=== PATIENT | female | born 1980 | race African-American/Black ===

== ENCOUNTER 2018-12-31 11:06 | Observation (INO) ==
[2018-12-31] MEDS ORDERED: Acetaminophen 325 MG Tablet PO PRN (14:50)
[2018-12-31] MEDS ORDERED: Bisacodyl 10 MG Supp RECTAL PRN (14:50)
--- NOTE | 2018-12-31 16:15 | P.HPIM ---
History of Present Illness Primary Care Physician: No Primary Care Physician Chief Complaint: Chest pain and left flank pain History of Present Illness: This is a 38-year-old female patient with no known medical history presented to the ED with complaints of left flank pain as well as midsternal chest pain for 2 weeks. Patient states that 2 weeks ago she had an episode of chest discomfort that was characteristically sharp in nature in the middle of her chest, she states that it lasted a couple minutes and then went away on its own. This past week she is intermittently been having chest pains that have been sharp in nature and worse when she breathes in and out, denies any radiation of the pain up her neck, arm or back. Does admit to associated nausea, shortness of breath and sweating with the pain. Denies any associated vomiting. Aside from this, patient does complain of left flank pain , denies any trauma to the area is tender to palpation. She has been taking Tylenol with some relief of the pain. Patient denies any history of heart disease, her risk factors do include family history of cardiovascular disease as well as self being obese. Does not follow with a elevator installer or PCP, has never had her cholesterol checked. Denies any recent fevers, chills, abdominal pain, diarrhea or dysuria. She does admit that she has had head congestion as well as sore throat for the past week. Denies any recent antibiotic use. Review of Systems Review of Systems: all other systems reviewed are negative PMFSH History History Provided By: Patient Medical History Medical History GERD (gastroesophageal reflux disease) (Acute) Surgical History Surgical History Hx of section (Acute) Family History Family History Other Cardiovascular disease Social History Social History Substance History: No History of Abuse Second Hand Smoke Exposure: No Smoking Status: Light tobacco smoker Tobacco Type: Cigarettes How Often Do You Have a Drink Containing Alcohol: 2 to 4 times a month [facility] within the Last 8 Weeks: No Recent Out of Country Travel within the Last 8 Weeks: No Medications and Allergies Allergies Allergy/AdvReac Type Severity Reaction Status Date / Time No Known Allergies Allergy Verified 12/31/18 11:42 Home Medications Medication Instructions Recorded Confirmed Type calcium carbonate-mag hydroxid 1 tab PO DAILY 12/31/18 12/31/18 History [Antacid (calcium carb-mag hyd)] Active Medications: Active Medications Acetaminophen (Tylenol) 650 mg PO Q4H PRN PRN Reason: Temp > 100.4 Al Hydroxide/Mg Hydroxide (Milk Of Magnesia Liq) 30 ml PO Q12H PRN PRN Reason: Mild Constipation Bisacodyl (Dulcolax Supp) 10 mg RECTAL DAILY PRN PRN Reason: SEVERE CONSITIPATION Lactulose (Lactulose Liq) 30 ml PO DAILY PRN PRN Reason: SEVERE CONSITIPATION Ondansetron HCl (Zofran Inj) 4 mg IV.PUSH Q6H PRN PRN Reason: NAUSEA OR VOMITING Sennosides (Senokot) 17.2 mg PO Q12H PRN PRN Reason: Moderate Constipation Sodium Chloride (Ns Flush) 2 ml IV.FLUSH BID TORRES Sodium Chloride (Ns Flush) 2 ml IV.FLUSH PRN PRN PRN Reason: FLUSH AFTER USING IV ACCESS Physical Exam Narrative: GENERAL: Well-developed, obese female patient with complaints of headache SKIN: Warm and dry. No rash. HEAD: Normocephalic. Atraumatic. EYES: Pupils equal and round. No scleral icterus. No injection or drainage. ENT: No nasal bleeding or discharge. Mucous membranes pink and moist. NECK: Supple. Trachea midline. CARDIOVASCULAR: Regular rate and rhythm. S1, S2 noted. No murmur appreciated. No chest pain to palpation RESPIRATORY: No accessory muscle use. Clear to auscultation. Breath sounds equal bilaterally. GASTROINTESTINAL: Abdomen soft, non-tender, nondistended. Normoactive bowel sounds x4. MUSCULOSKELETAL: No obvious deformities. Extremities without clubbing, cyanosis , or edema. NEUROLOGICAL: Awake and alert. No obvious cranial nerve deficits. Motor grossly within normal limits. 5/5 muscle strength in bilateral upper and lower extremities. Normal speech. PSYCHIATRIC: Appropriate mood and affect; insight and judgment normal. Caprini VTE Risk Assessment Caprini VTE Risk Assessment: No/Low Risk (score <= 1) Caprini Risk Assessment Model: Point Value = 1 Point Value = 2 Point Value = 3 Point Value = 5 Age 41-60 Minor surgery BMI > 25 kg/m2 Swollen legs Varicose veins or History of unexplained or recurrent spontaneous Oral contraceptives or hormone replacement Sepsis (< 1 month) Serious lung disease, including pneumonia (< 1 month) Abnormal pulmonary function Acute myocardial infarction Congestive heart failure (< 1 month) History of inflammatory bowel disease Medical patient at bed rest Age 61-74 Arthroscopic surgery Major open surgery (> 45 min) Laparoscopic surgery (> 45 min) Malignancy Confined to bed (> 72 hours) Immobilizing plaster cast Central venous access Age >= 75 History of VTE Family history of VTE Factor V Leiden Prothrombin [id number] Lupus anticoagulant Anticardiolipin antibodies Elevated serum homocysteine Heparin-induced thrombocytopenia Other congenital or acquired thrombophilia Stroke (< 1 month) Elective arthroplasty Hip, pelvis, or leg fracture Acute spinal cord injury (< 1 month) Prophylaxis Regimen: Total Risk Factor Score Risk Level Prophylaxis Regimen 0-1 Low Early ambulation 2 Moderate Order ONE of the following: *Sequential Compression Device (SCD) *Heparin 5000 units SQ BID 3-4 Higher Order ONE of the following medications: *Heparin 5000 units SQ TID *Enoxaparin/Lovenox 40 mg SQ daily (WT < 150 kg, CrCl > 30 mL/min) *Enoxaparin/Lovenox 30 mg SQ daily (WT < 150 kg, CrCl > 10-29 mL/min) *Enoxaparin/Lovenox 30 mg SQ BID (WT < 150 kg, CrCl > 30 mL/min) AND/OR *Sequential Compression Device (SCD) 5 or more Highest Order ONE of the following medications: *Heparin 5000 units SQ TID (Preferred with Epidurals) *Enoxaparin/Lovenox 40 mg SQ daily (WT < 150 kg, CrCl > 30 mL/min) *Enoxaparin/Lovenox 30 mg SQ daily (WT < 150 kg, CrCl > 10-29 mL/min) *Enoxaparin/Lovenox 30 mg SQ BID (WT < 150 kg, CrCl > 30 mL/min) AND *Sequential Compression Device (SCD) Assessment and Plan Plan This is a 38-year-old male patient with no known medical history presented to the ED with complaints of chest pain as well as left flank pain. Chest pain, atypical -Patient has been admitted to the chest pain center for observation. Serial EKGs and serial troponins have been ordered for ruling out ACS purposes. Initial troponin flat. We will continue to monitor trends. -EKG reviewed showing normal sinus rhythm without any ST changes to indicate any ischemia. -Continue on cardiac telemetry, monitor for any arrhythmias. -BNP 5. CBC and BMP reviewed, essentially unremarkable. D-dimer is negative. -Chest x-ray reviewed showing no acute cardiopulmonary disease. -Will add lipid panel to labs. -Risk factors for coronary artery disease include obesity, family history of heart disease. -If ACS ruled out with cardiac enzymes and serial EKGs, patient will undergo a cardiac stress test to further rule out any ischemia. N.p.o. after midnight. -Patient is stable at this time and agreeable to plan. -Further hospitalization and treatment plan will depend on nuclear imaging results. Left flank pain -Abdominal/pelvis CT reviewed showing no acute findings for the pain. -Patient was given Toradol which did seem to help the pain. -UA negative. -Toradol available for pain. -Supportive care. Possible sinusitis versus upper respiratory infection -Patient complains of congestion as well as sore throat. -No leukocytosis. Afebrile. -Will start amoxicillin. Monitor for infection. UA negative. -Gentle hydration BP is labile, could be secondary to nitroglycerin. Start IV fluids x 1 L. DVT prophylaxis: SCDs. Ambulation. D/w patient, patient's and Dr. Cronin.
[2018-12-31] MEDS ORDERED: Ketorolac Inj 30 MG/ML (IVP) Vial IV.PUSH PRN (19:41)
[2018-12-31] MEDS ORDERED: Sod Chloride 0.9% Inj 1,000 ML IV.CONT SCH (20:00)
[2019-01-01 06:27] LABS: Baso % (Auto) 0.7 % (0.0-2.0); Eos # (Auto) 0.3 th/mm3 (0.0-0.4); Eos % (Auto) 5.2 % (0.0-4.0); Hematocrit 35.1 % (35.0-46.0); Hemoglobin 11.3 gm/dL (11.6-15.3); Lymph # (Auto) 1.2 th/mm3 (1.0-4.8); Lymph % (Auto) 20.6 % (9.0-44.0); Mean Corpuscular HGB Conc 32.2 % (32.0-36.0); Mean Corpuscular Hemoglobin 25.6 pg (27.0-34.0); Mean Corpuscular Volume 79.6 fL (80.0-100.0); Mean Platelet Volume 8.3 fL (7.0-11.0); Mono # (Auto) 0.4 th/mm3 (0.0-0.9); Mono % (Auto) 6.5 % (0.0-8.0); Neut # (Auto) 3.8 th/mm3 (1.8-7.7); Platelet Count 313 th/mm3 (150-450); Red Blood Count 4.41 mil/mm3 (4.00-5.30); Red Cell Distribution Width 15.5 % (11.6-17.2); White Blood Count 5.7 th/mm3 (4.0-11.0)
[2019-01-01 06:33] LABS: Chloride 109 meq/L (98-107); Potassium 4.2 meq/L (3.5-5.1); Sodium 141 meq/L (136-145)
[2019-01-01 06:38] LABS: Anion Gap 8 meq/L (5-15); Blood Urea Nitrogen 9 mg/dL (7-18); Calcium 8.5 mg/dL (8.5-10.1); Carbon Dioxide 24.5 meq/L (21.0-32.0); Glucose,Random 127 mg/dL (74-106)
[2019-01-01 06:42] LABS: Glomerular Filtration Rate Greater Than 89 mL/min (>89)
--- NOTE | 2019-01-01 08:49 | P.PNIM ---
Subjective Interval history: 38-year-old female who is seen examined today for follow-up on chest pain. Patient denies any recurrent chest pain. Only complaint is that the room is cold. Patient indicates that she feels if she can walk on a treadmill for stress testing. Vital signs are stable. Patient remains afebrile. Physical Exam Vital signs: Vital Signs 12/31/18 16:00 12/31/18 17:43 12/31/18 20:00 Temperature 98.1 F 97.1 F L Pulse Rate 91 H 77 88 Respiratory Rate 22 20 Blood Pressure 96/76 L 99/51 L Pulse Oximetry 96 98 01/01/19 00:00 01/01/19 00:02 01/01/19 04:00 Temperature 97.2 F L 98.3 F Pulse Rate 89 84 90 Respiratory Rate 20 20 Blood Pressure 101/58 L 117/55 L Pulse Oximetry 98 99 01/01/19 08:00 Temperature 99.2 F Pulse Rate 95 H Respiratory Rate 22 Blood Pressure 112/68 Pulse Oximetry 96 Intake & Output 12/31/18 01/01/19 01/01/19 18:59 06:59 18:59 Intake Total 480 / 480 0 / 0 Balance 480 / 480 0 / 0 Weight 118.841 kg 118.7 kg Intake: Oral 480 / 480 0 / 0 Other: # Voids 2 3 Date of Last Bowel Movement 12/30/18 Weight On Admission 118.841 kg Narrative: GENERAL: Well-developed, obesity with BMI of 41.0, in no acute distress. alert and orientated HEENT: Head is normocephalic without any lesions or masses noted. Facial features are symmetric. Eyes: Extraocular muscles are intact. Conjunctivae were clear. NECK: Supple without any masses. Trachea midline no deviation. No JVD, CARDIAC: Regular rhythm, regular rate. S1/S2 are heard. No murmurs gallops or rubs. LUNGS: Clear to auscultation bilaterally. No wheeze, rhonchi or rales. No use of accessory muscles on inspiration or expiration. ABDOMEN: Soft, nontender. Nondistended. Bowel sounds heard in all 4 quadrants. No organomegaly or masses. Negative rebound, negative guarding EXTREMITIES: No edema, pulses are equal bilaterally. No cyanosis or clubbing NEUROLOGY: Mood and affect appear appropriate. Cranial nerves II through XII grossly intact. Moving all extremities, speech is clear Results Labs CBC & Chem 7: 01/01/19 05:30 01/01/19 05:30 Assessment and Plan Plan Chest pain, atypical -Patient with increased risk factors include obesity, family history of heart disease Patient has been ruled out for acute coronary event with serial cardiac enzymes that are negative Serial EKGs reviewed by myself which indicate normal sinus rhythm without any changes Patient underwent exercise stress test and indicated normal stress test with no signs of ischemia Patient continued on aspirin, nitroglycerin as needed Continue telemetry Lipid panel indicated LDL of 96 Left flank pain -Abdominal/pelvis CT reviewed showing no acute findings for the pain. -Patient was given Toradol which did seem to help the pain. -UA negative. -Toradol available for pain. -Supportive care. Possible sinusitis versus upper respiratory infection -Patient complains of congestion as well as sore throat. -No leukocytosis. Afebrile. -Continue amoxicillin. Monitor for infection. UA negative. DVT prophylaxis: SCDs. Ambulation. Discussed Condition With: Patient, nursing staff, Dr. White Discharge Planning: Discharge home in stable condition Activity: Ad cherise. Diet: Healthy heart diet Medication per medication reconciliation Follow-up with primary medical doctor in 1 week Progress Note: Quality VTE Deep Vein Thrombosis/Pulmonary Embolism Present on Admission: No
[2019-01-01] MEDS ORDERED: Acetaminophen 325 MG Tablet PO PRN (09:41)
[2019-01-01 10:07] LABS: Chol/HDL Ratio 4.31 Ratio; HDL Cholesterol 38.7 mg/dL (40.0-60.0)
[2019-01-01 10:27] LABS: Creatine Kinase 65 U/L (26-192)
--- NOTE | 2019-01-01 11:48 | TR ---
Date Performed: 01/01/2019 Time Performed: 11:02:51 DOCTOR: Griselda Kohler DRUG LIST: CLINICAL HISTORY: ANGINA REASON FOR TEST: Angina REASON FOR ENDING: Completed Protocol OBSERVATION: Arrhythmia: None Chest Pain: None CONCLUSION: Patient tolerated TATE protocol with Total Exercise Time=6:00 Maximum FP=360 % Max HR Achieved=89.0% Maximum JZ=437/84, Testing stopped secondary to goals acheived, During peak exercis e patient was asymptomatic, quick upsloping ST segments, No significant ST depressions, HR and BP tasha ropriate response to exercise, Recovery period, quick return to baseline COMMENTS: No ischemia
[2019-01-01 12:02] VITALS: BP 123/77; PULSE 92; RESP 20; TEMP 97.1; O2SAT 98
--- NOTE | 2019-01-01 16:37 | ECG ---
Date Performed: 01/01/2019 Time Performed: 09:33:47 PTAGE: 38 years EKG: Sinus rhythm NORMAL ECG Since PREVIOUS TRACING , no significant change noted DOCTOR: Griselda Kohler Interpretating Date/Time 01/01/2019 16:36:06
== END 2019-01-01 14:00 | disposition home or self-care (01) ==
LOC: PH3 15:47 → PHEDDLT 15:47
PROVIDERS: ADMIT Hospitalist; ATTEND Hospitalist
DX: K21.9 Gastro-esophageal reflux disease without esophagitis; R10.9 Unspecified abdominal pain; Z68.41 Body mass index [BMI] 40.0-44.9, adult; Z98.891 History of uterine scar from previous surgery; R07.89 Other chest pain; Z82.49 Family history of ischemic heart disease and other diseases of the circulatory system; E66.9 Obesity, unspecified; F17.210 Nicotine dependence, cigarettes, uncomplicated
CPT/HCPCS: 71010; 71045; 74176; 80048; 80053; 80061; 81001; 82550; 83520; 83690; 83880; 84484; 85025; 85379; 90774; 90784; 93005; 93017; 96360; 96361; 96374; 99285; C8952; G0378; J1885; J7030